=== PATIENT | female | born 1970 | race Two or more races ===

== ENCOUNTER 2016-08-17 13:42 | Emergency (ER) | payer BC, MEDICAID ==
[~2016-08-17] VITALS: Ht 170.2 cm; Wt 76.2 kg
[~2016-08-17 13:42] MED LIST: CYCL-181 PO; HYDR5CAP; IBUP600T27; OME20GT; SIMV-8 PO; SUMA50TA2 PO; TRAM50TA2 PO
[2016-08-17 14:08] VITALS: BP 131/87
== END 2016-08-17 15:50 | disposition home or self-care (01) ==
LOC: ER 13:42
DX: K64.9 Unspecified hemorrhoids (principal); Z98.51 Tubal ligation status; Z90.89 Acquired absence of other organs